=== PATIENT | female | born 1990 | race Caucasian/White ===

== ENCOUNTER 2019-06-26 08:40 | Inpatient (IN) | payer OTHER ==
[2019-06-26] VITALS (36 sets, daily range): BP systolic 91–130; BP diastolic 40–75; PULSE 64–124; RESP 12–54; Ht 157.5 cm; Wt 80.5 kg
[~2019-06-26] VITALS: Ht 157.5 cm; Wt 80.5 kg
[~2019-06-26 08:40] MED LIST: CEFAZOLIN 1 GM/50 ML (PMX) 50 ML IVPB SCH; IBUP-1541 PO; LEVO175T38 PO; LIOT25TA11 PO; SOD CHLORIDE 0.9% 1,000 ML IV SCH
[2019-06-26] MEDS ORDERED: ROCURONIUM 50 MG INJ ONE (13:40)
[2019-06-26] MEDS ORDERED: CEFAZOLIN 1 GM INJ ONE (13:40)
[2019-06-26] MEDS ORDERED: PROPOFOL 20 ML ONE (13:40)
[2019-06-26] MEDS ORDERED: METOCLOPRAMIDE 10 MG INJ ONE (13:40)
[2019-06-26] MEDS ORDERED: HYDROmorphONE 2 MG/ML SYG ONE (13:58)
[2019-06-26] MEDS ORDERED: DIPHENHYDRAMINE 50 MG INJ IV PRN (14:00)
[2019-06-26] MEDS ORDERED: HYDROmorphONE 1 MG/5 ML IV SYRINGE IV PRN ×2 (14:00)
[2019-06-26] MEDS ORDERED: MEPERIDINE 25 MG INJ IV PRN (14:00)
[2019-06-26] MEDS ORDERED: ONDANSETRON 4 MG INJ IV PRN (14:00)
[2019-06-26] MEDS ORDERED: FENTAnyl 50 MCG/ML VIAL IV PRN ×2 (14:00)
[2019-06-26] MEDS ORDERED: METOPROLOL 5 MG INJ ONE (14:15)
[2019-06-26] MEDS ORDERED: GLYCOPYRROLATE 0.4 MG INJ ONE (15:02)
[2019-06-26] MEDS ORDERED: NEOSTIGMINE 3 MG/3 ML SYRINGE ONE (15:02)
[2019-06-26] MEDS: FENTAnyl 50 MCG/ML VIAL IV PRN ×2 (15:59→16:13)
[2019-06-26] MEDS: HYDROmorphONE 1 MG/5 ML IV SYRINGE IV PRN ×2 (17:56→18:38)
[2019-06-26] MEDS: D5W-0.45 NACL + KCL 20 MEQ 1,000 ML IV SCH ×2 (21:01→23:25)
[2019-06-26] MEDS: morphine 2 MG INJ IV PRN (22:16)
[2019-06-26] MEDS: ONDANSETRON 4 MG INJ IV PRN (22:44)
[2019-06-27] VITALS: BP 101/57; PULSE 77; RESP 18
[2019-06-27] MEDS: morphine 2 MG INJ IV PRN ×3 (02:36→15:06)
[2019-06-27] MEDS: D5W-0.45 NACL + KCL 20 MEQ 1,000 ML IV SCH ×2 (04:38→12:56)
[2019-06-27 07:36] VITALS: BP 112/55; PULSE 96; RESP 16
[2019-06-27] MEDS: ONDANSETRON 4 MG INJ IV PRN (08:03)
[2019-06-27] MEDS ORDERED: LEVOTHYROXINE 100 MCG VIAL IV SCH (14:15)
[2019-06-27 15:07] VITALS: BP 134/71; PULSE 87; RESP 17
[2019-06-27 18:18] VITALS: BP 133/80; PULSE 89; RESP 18
[2019-06-27 20:09] VITALS: BP 137/75; PULSE 95; RESP 18
[2019-06-27] MEDS ORDERED: IBUPROFEN 400 MG TAB PO PRN (20:30)
[2019-06-27] MEDS: LIOTHYRONINE 25 MCG TAB PO SCH (20:39)
[2019-06-28] MEDS: D5W-0.45 NACL + KCL 20 MEQ 1,000 ML IV SCH (01:37)
[2019-06-28 02:15] VITALS: BP 112/65; PULSE 85; RESP 18
[2019-06-28] MEDS: LIOTHYRONINE 25 MCG TAB PO SCH (07:51)
[2019-06-28 08:24] VITALS: BP 113/75; PULSE 82; RESP 18
== END 2019-06-28 13:07 | disposition home or self-care (01) | DRG 627 ==
LOC: REC 08:40 → EDSTATUS 11:00 → MS1 20:25
PROVIDERS: ADMIT Surgery Surgical Oncology; ATTEND Surgery Surgical Oncology
PROC: 0GTG0ZZ Resection of Left Thyroid Gland Lobe, Open Approach (ICD-10-PCS; principal; 2019-06-26 13:00)
DX: C73 Malignant neoplasm of thyroid gland (principal); E06.3 Autoimmune thyroiditis; E89.0 Postprocedural hypothyroidism
CPT/HCPCS: 80048; 80069; 82310; 82330; 83970; 85025; 88307; J0690; J1170; J1200; J2175; J2270; J2405; J2710; J2765; J3010; J3480; J7030